=== PATIENT | female | born 1975 | race American Indian/Alaskan Native ===

== ENCOUNTER 2017-11-16 16:54 | Emergency (ER) | payer OTHER, MEDICARE ==
[2017-11-16 16:59] VITALS: BMI 44.4
[2017-11-16 17:07] VITALS: TEMP 98.5
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
[2017-11-16 19:44] VITALS: BP 124/72; PULSE 88; RESP 16; O2SAT 100
--- NOTE | 2017-11-17 08:56 | RAD ---
PROCEDURE: Radiographs of the Chest and Left Ribs. HISTORY: rib and chest pain COMPARISON: None available. TECHNIQUE: Frontal radiograph of the chest and multiple oblique radiographs of the left ribs were obtained. FINDINGS: LEFT RIBS: No fracture or focal lesion visualized. LUNGS: Clear. PLEURA: No pneumothorax or pleural fluid. CARDIOVASCULAR: Normal sized heart. No pulmonary vascular congestion. OTHER FINDINGS: None. IMPRESSION: Unremarkable radiographs of the chest and left ribs. No left rib fracture.
--- NOTE | 2017-11-17 08:58 | RAD ---
PROCEDURE: Radiographs of the Lumbar Spine. HISTORY: back pain COMPARISON: No prior. FINDINGS: BONES: Normal alignment. No listhesis. No fracture. DISC SPACES: Unremarkable. OTHER FINDINGS: None. IMPRESSION: Unremarkable radiographs of the lumbar spine.
== END 2017-11-16 19:44 | disposition home or self-care (01) ==
LOC: ED 16:54
DX: M54.5 Low back pain (principal); R07.81 Pleurodynia; V49.49XA Driver injured in collision with other motor vehicles in traffic accident, initial encounter; Y92.410 Unspecified street and highway as the place of occurrence of the external cause
CPT/HCPCS: 71101; 72110; 96372; 99285; J1885

== ENCOUNTER 2017-11-17 08:29 | Emergency (ER) | payer OTHER, MEDICARE ==
[2017-11-17 08:29] VITALS: BMI 44.4
== END 2017-11-17 12:17 | disposition left against medical advice (07) ==
LOC: ED 08:29
DX: Z02.89 Encounter for other administrative examinations (principal); R11.0 Nausea